=== PATIENT | male | born 1960 | race African-American/Black ===

== ENCOUNTER 2019-11-14 19:19 | Inpatient (IN) | payer BC, OTHER ==
[2019-11-14 20:09] VITALS: BMI 31.8
[2019-11-14] MEDS ORDERED: SODIUM CHLORIDE 500 ML IV STA (21:30)
--- NOTE | 2019-11-14 21:30 | PDOC ---
History of Present Illness <Yahir Kirby - Last Filed: 11/15/19 04:51> - General History Source: Patient - History of Present Illness Initial Comments: -year-old male complaining of right lateral umbilicus pain. Patient reports some nausea and vomiting at home. Patient was seen by his PCP today attempted to reduce umbilical hernia. As per patient patient was referred to the ER, since PCP was unable to reduce umbilical hernia. Patient now alert awake has slight tenderness to the lateral right umbilical area. No palpable mass/ reducible mass noted. denies fever/ chills <Marilu Arshad - Last Filed: 11/15/19 17:06> - General Chief Complaint: Pain Stated Complaint: SENT BY DOCTOR Time Seen by Provider: 11/14/19 20:59 Past History <Yahir Kirby - Last Filed: 11/15/19 04:51> - Past Medical History COPD: No - Psycho Social/Smoking Cessation Hx Smoking History: Never smoked Hx Alcohol Use: No Drug/Substance Use Hx: No <Marilu Arshad - Last Filed: 11/15/19 17:06> - Past Medical History Allergies/Adverse Reactions: Allergies Allergy/AdvReac Type Severity Reaction Status Date / Time No Known Allergies Allergy Verified 11/14/19 22:47 Home Medications: Ambulatory Orders Amoxicillin/Potassium Clav [Augmentin 875-125 Tablet] 1 each PO BID #10 tablet MDD 2 11/15/19 oxyCODONE HCL [Roxicodone -] 5 mg PO Q4H PRN #30 tablet MDD 6 11/15/19 Review of Systems - Review of Systems Able to Perform ROS?: Yes Is the patient limited Sami proficient: No Constitutional: No: Symptoms Reported, See HPI, Chills, Diaphoresis, Fever, Loss of Appetite, Malaise, Night Sweats, Weakness, Weight Stable, Unintentional Wgt. Loss, Unexplained wgt Loss, Other ABD/GI: Yes: Nausea, Abdominal cramping <Marilu Arshad - Last Filed: 11/15/19 17:06> *Physical Exam - Vital Signs Last Vital Signs Temp Pulse Resp BP Pulse Ox 98.6 F 71 20 141/79 97 11/14/19 20:05 11/15/19 02:38 11/15/19 02:38 11/15/19 02:38 11/15/19 02:38 <Yahir Kirby - Last Filed: 11/15/19 04:51> - Vital Signs Last Vital Signs Temp Pulse Resp BP Pulse Ox 98.6 F 77 19 137/71 96 11/14/19 20:05 11/14/19 20:05 11/14/19 20:05 11/14/19 20:05 11/14/19 20:05 - Physical Exam General Appearance: Yes: Appropriately Dressed Respiratory/Chest: positive: Lungs Clear, Normal Breath Sounds Cardiovascular: positive: Regular Rhythm, Regular Rate Gastrointestinal/Abdominal: positive: Normal Bowel Sounds, Tender (right umbilicus no palpable mass. has tenderness on exam), Soft Neurologic: positive: Fully Oriented, Alert, Normal Mood/Affect <Marilu Arshad - Last Filed: 11/15/19 17:06> ED Treatment Course - LABORATORY CBC & Chemistry Diagram: 11/14/19 21:40 11/14/19 21:40 - ADDITIONAL ORDERS Additional order review: Laboratory Results 11/14/19 11/14/19 11/14/19 22:50 21:40 21:40 PT with INR 13.00 INR 1.10 H PTT (Actin FS) 33.0 Sodium Potassium Chloride Carbon Dioxide Anion Gap BUN Creatinine Est GFR (CKD-EPI)AfAm Est GFR (CKD-EPI)NonAf Random Glucose Calcium Total Bilirubin AST ALT Alkaline Phosphatase Total Protein Albumin Lipase Urine Color Yellow Urine Appearance Clear Urine pH 6.0 Ur Specific [place] 1.024 Urine Protein Negative Urine Glucose (UA) Negative Urine Ketones Negative Urine Blood Negative Urine Nitrite Negative Urine Bilirubin Negative Urine Urobilinogen 1.0 Ur Leukocyte Esterase Negative Blood Type A POSITIVE Antibody Screen Negative 11/14/19 11/14/19 21:40 21:40 PT with INR INR PTT (Actin FS) Sodium 139 Potassium 4.3 Chloride 104 Carbon Dioxide 32 Anion Gap 3 L BUN 11.1 Creatinine 1.0 Est GFR (CKD-EPI)AfAm 95.73 Est GFR (CKD-EPI)NonAf 82.60 Random Glucose 94 Calcium 9.3 Total Bilirubin 1.0 AST 17 ALT 24 Alkaline Phosphatase 58 Total Protein 7.7 Albumin 3.6 Lipase 131 Urine Color Urine Appearance Urine pH Ur Specific [place] Urine Protein Urine Glucose (UA) Urine Ketones Urine Blood Urine Nitrite Urine Bilirubin Urine Urobilinogen Ur Leukocyte Esterase Blood Type Antibody Screen 11/14/19 21:40 RBC 4.70 MCV 92.3 MCHC 33.2 RDW 13.9 MPV 8.9 Neutrophils % 59.5 Lymphocytes % 27.5 Monocytes % 9.3 Eosinophils % 3.0 Basophils % 0.7 - Medications Given in the ED: ED Medications Discontinued Medications Generic Name Dose Route Start Last Admin Trade Name Soy PRN Reason Stop Dose Admin Sodium Chloride 500 mls @ 500 mls/hr 11/14/19 21:30 11/14/19 21:52 Normal Saline - IV 11/14/19 22:29 500 mls/hr ASDIR STA Administration <Yahir Kirby - Last Filed: 11/15/19 04:51> - LABORATORY CBC & Chemistry Diagram: 11/14/19 21:40 11/14/19 21:40 <Marilu Arshad - Last Filed: 11/15/19 17:06> ED Progress Note - Progress Note Progress Note: 11/15/19 00:48 A: abdominal pain P: ctap ;labs ua urine culture <Marilu Arshad - Last Filed: 11/15/19 17:06> Medical Decision Making - Medical Decision Making 11/15/19 01:30 CTAP:Abdominal wall: Small fat-containing umbilical hernia without evidence of strangulation. Musculoskeletal: No acute fracture. IMPRESSION: There is thickening and pericholecystic edema with dilated gallbladder; recommend correlation with right upper quadrant ultrasound for acute cholecystitis. US: pending 11/15/19 2.00 patient signed out to Dr. Kirby. pending US results <Marilu Arshad - Last Filed: 11/15/19 17:06> Discharge - Discharge Information Problems reviewed: Yes - Admission Yes <Yahir Kirby - Last Filed: 11/15/19 04:51> - Discharge Information Problems reviewed: Yes <Marilu Arshad - Last Filed: 11/15/19 17:06> - Discharge Information Clinical Impression/Diagnosis: Cholecystitis Abdominal pain Qualifiers: Abdominal location: periumbilical Qualified Code(s): R10.33 - Periumbilical pain Condition: Stable
[2019-11-14 22:00] LABS: BASO % 0.7 % (0-2.0); HEMATOCRIT 43.4 % (35.4-49); HEMOGLOBIN 14.4 GM/dL (11.7-16.9); LYMPH % 27.5 % (8-40); MCH 30.6 pg (25.7-33.7); MCHC 33.2 g/dl (32.0-35.9); MEAN CELL VOLUME 92.3 fl (80-96); MEAN PLT VOLUME 8.9 fl (7.5-11.1); MONO % 9.3 % (3.8-10.2); NEUT % 59.5 % (42.8-82.8); PLATELET COUNT 196 K/MM3 (134-434); RDW 13.9 % (11.9-15.9); WHITE BLOOD COUNT 7.7 K/mm3 (4.0-10.0)
[2019-11-14 22:13] LABS: INR 1.1 (0.83-1.09)
[2019-11-14 22:23] LABS: ALBUMIN 3.6 g/dl (3.4-5.0); BLOOD UREA NITROGEN 11.1 mg/dL (7-18); CALCIUM 9.3 mg/dL (8.5-10.1); POTASSIUM 4.3 mmol/L (3.5-5.1); TOT PROT 7.7 g/dl (6.4-8.2)
[2019-11-14 22:57] LABS: URINE APPEARANCE CLEAR; URINE BILIRUBIN NEGATIVE (NEGATIVE); URINE COLOR YELLOW; URINE GLUCOSE (UA) NEGATIVE (NEGATIVE); URINE KETONE NEGATIVE (NEGATIVE); URINE LEUK ESTERASE NEGATIVE (NEGATIVE); URINE NITRITE NEGATIVE (NEGATIVE); URINE PROTEIN NEGATIVE (NEGATIVE)
--- NOTE | 2019-11-15 04:54 | PDOC ---
*Physical Exam - Vital Signs Last Vital Signs Temp Pulse Resp BP Pulse Ox 98.6 F 71 20 141/79 97 11/14/19 20:05 11/15/19 02:38 11/15/19 02:38 11/15/19 02:38 11/15/19 02:38 ED Treatment Course - LABORATORY CBC & Chemistry Diagram: 11/18/19 06:50 11/14/19 21:40 - ADDITIONAL ORDERS Additional order review: Laboratory Results 11/14/19 11/14/19 11/14/19 22:50 21:40 21:40 PT with INR 13.00 INR 1.10 H PTT (Actin FS) 33.0 Sodium Potassium Chloride Carbon Dioxide Anion Gap BUN Creatinine Est GFR (CKD-EPI)AfAm Est GFR (CKD-EPI)NonAf Random Glucose Calcium Total Bilirubin AST ALT Alkaline Phosphatase Total Protein Albumin Lipase Urine Color Yellow Urine Appearance Clear Urine pH 6.0 Ur Specific [place] 1.024 Urine Protein Negative Urine Glucose (UA) Negative Urine Ketones Negative Urine Blood Negative Urine Nitrite Negative Urine Bilirubin Negative Urine Urobilinogen 1.0 Ur Leukocyte Esterase Negative Blood Type A POSITIVE Antibody Screen Negative 11/14/19 11/14/19 21:40 21:40 PT with INR INR PTT (Actin FS) Sodium 139 Potassium 4.3 Chloride 104 Carbon Dioxide 32 Anion Gap 3 L BUN 11.1 Creatinine 1.0 Est GFR (CKD-EPI)AfAm 95.73 Est GFR (CKD-EPI)NonAf 82.60 Random Glucose 94 Calcium 9.3 Total Bilirubin 1.0 AST 17 ALT 24 Alkaline Phosphatase 58 Total Protein 7.7 Albumin 3.6 Lipase 131 Urine Color Urine Appearance Urine pH Ur Specific [place] Urine Protein Urine Glucose (UA) Urine Ketones Urine Blood Urine Nitrite Urine Bilirubin Urine Urobilinogen Ur Leukocyte Esterase Blood Type Antibody Screen 11/14/19 21:40 RBC 4.70 MCV 92.3 MCHC 33.2 RDW 13.9 MPV 8.9 Neutrophils % 59.5 Lymphocytes % 27.5 Monocytes % 9.3 Eosinophils % 3.0 Basophils % 0.7 - Medications Given in the ED: ED Medications Discontinued Medications Generic Name Dose Route Start Last Admin Trade Name Freq PRN Reason Stop Dose Admin Sodium Chloride 500 mls @ 500 mls/hr 11/14/19 21:30 11/14/19 21:52 Normal Saline - IV 11/14/19 22:29 500 mls/hr ASDIR STA Administration Medical Decision Making - Medical Decision Making 11/15/19 04:53 Case reviewed, agree with assessment and plan US with +stone, GB wall 8mm, +pericholecystic fluid admit, will consult surgery Discharge - Discharge Information Problems reviewed: Yes Clinical Impression/Diagnosis: Cholecystitis Abdominal pain Qualifiers: Abdominal location: periumbilical Qualified Code(s): R10.33 - Periumbilical pain Condition: Stable Disposition: HOME - Follow up/Referral - Patient Discharge Instructions - Post Discharge Activity
--- NOTE | 2019-11-15 05:13 | HP ---
Admitting History and Physical - Primary Care Physician PCP: Dr. Buchanan - Admission Chief Complaint: abd pain History of Present Illness: 59-year-old male complaining of right lateral umbilicus pain. Patient reports some nausea and vomiting at home. Patient was seen by his PCP today attempted to reduce umbilical hernia. As per patient referred to the ER, since PCP was unable to reduce umbilical hernia. Patient still complain of slight tenderness to the lateral right umbilical area, with nausea. No palpable mass/reducible mass noted. denies fever/ chills History Source: Patient Limitations to Obtaining History: No Limitations - Past Surgical History Past Surgical History: Yes: None - Smoking History Smoking history: Never smoked - Alcohol/Substance Use Hx Alcohol Use: No History of Substance Use: reports: None - Social History Usual Living Arrangement: Yes: With Spouse ADL: Independent History of Recent Travel: No Home Medications - Allergies Allergies/Adverse Reactions: Allergies Allergy/AdvReac Type Severity Reaction Status Date / Time No Known Allergies Allergy Verified 11/14/19 22:47 - Home Medications Home Medications: Ambulatory Orders NK [No Known Home Medication] 11/15/19 Family Medical History Family History: Denies Review of Systems - Review of Systems Constitutional: reports: No Symptoms Eyes: reports: No Symptoms HENT: reports: No Symptoms Neck: reports: No Symptoms Cardiovascular: reports: No Symptoms Respiratory: reports: No Symptoms Gastrointestinal: reports: Abdominal Pain, Nausea, Vomiting Genitourinary: reports: No Symptoms Musculoskeletal: reports: No Symptoms Neurological: reports: No Symptoms Endocrine: reports: No Symptoms Hematology/Lymphatic: reports: No Symptoms Psychiatric: reports: No Symptoms Physical Examination Vital Signs: Vital Signs Temperature 98.6 F 11/14/19 20:05 Pulse Rate 71 11/15/19 02:38 Respiratory Rate 20 11/15/19 02:38 Blood Pressure 141/79 11/15/19 02:38 O2 Sat by Pulse Oximetry (%) 97 11/15/19 02:38 Constitutional: Yes: No Distress, Calm Eyes: Yes: Conjunctiva Clear, EOM Intact HENT: Yes: Atraumatic, Normocephalic Neck: Yes: Supple, Trachea Midline Cardiovascular: Yes: Regular Rate and Rhythm Respiratory: Yes: Regular, CTA Bilaterally Gastrointestinal: Yes: Normal Bowel Sounds, Soft, Tenderness (right umbilicus, no mass noted) ...Rectal Exam: Yes: WNL Musculoskeletal: Yes: WNL Extremities: Yes: WNL Edema: No Peripheral Pulses WNL: Yes Integumentary: Yes: WNL Neurological: Yes: Alert, Oriented Labs: CBC, BMP 11/14/19 21:40 11/14/19 21:40 Imaging - Results Cat Scan: Report Reviewed (CT ABD: Small fat-containing umbilical hernia without evidence of strangulation. There is thickening and pericholecystic edema with dilated gallbladder.) Ultrasound: Report Reviewed (ABD: cholelithiasis with gallbladder wall thickening 8 mm with non-mobile gallstone, gallbladder sludge noted.) Problem List - Problems (1) Abdominal pain Code(s): R10.9 - UNSPECIFIED ABDOMINAL PAIN Qualifiers: Abdominal location: periumbilical Qualified Code(s): R10.33 - Periumbilical pain (2) Cholecystitis Code(s): K81.9 - CHOLECYSTITIS, UNSPECIFIED Assessment/Plan 59-year-old male with no significant medical history arrived to ER after seen by PCP today at office for umbilical hernia, which PCP attempted to reduce however unable to so sent to ER for further evaluation. Patient complaining of right lateral umbilicus pain, reports of some nausea and vomiting at home. # Abdominal pain # cholelithiasis vs Cholecystitis CT ABD: Small fat-containing umbilical hernia without evidence of strangulation. There is thickening and pericholecystic edema with dilated gallbladder. ABD: cholelithiasis with gallbladder wall thickening 8 mm with non-mobile gallstone, gallbladder sludge noted. cbc and cmp : unremarkable Lfts, total bili, lipase: wnl UA: negative NPO pain management IVF Zofran PRN for n/v start on zosyn 3.375mg q8h surgery consult FEN: NPO, IVF VTE: Heparin SQ Dispo: Med-surg Visit type - Emergency Visit Emergency Visit: Yes Care time: The patient presented to the Emergency Department on the above date and was hospitalized for further evaluation of their emergent condition. - New Patient This patient is new to me today: Yes Date on this admission: 11/15/19 - Critical Care Critical Care patient: No
[2019-11-15] MEDS ORDERED: ONDANSETRON 4 MG/2 ML VIAL IVPUSH PRN ×3 (05:28→15:57)
[2019-11-15] MEDS ORDERED: SODIUM CHLORIDE 1,000 ML IV SCH ×2 (05:30→15:57)
[2019-11-15] MEDS ORDERED: ACETAMINOPHEN 1000 MG/100 ML VIAL (NON FORMULARY) IVPB PRN ×2 (05:32→15:57)
[2019-11-15] MEDS ORDERED: PIPERACILLIN/TAZOB 3.375 GM 3.375 GM in DEXTROSE 5%-WATER - 50 ML IVPB ONE (06:08)
[2019-11-15] MEDS ORDERED: DEXTROSE 5%-WATER - 50 ML IVPB ONE ×3 (06:40→18:16)
[2019-11-15] MEDS ORDERED: PIPERACILLIN/TAZOBACTAM 3.375 GM VIAL IVPB ONE ×3 (06:40→18:16)
--- NOTE | 2019-11-15 08:09 | CONSULT ---
Addendum entered and electronically signed by Aman Cheung PA 11/15/19 08:37: Patient's umbilical hernia which is reduced right now will most likely recur. If possible, will attempt at closing hernia if able to use for one of our surgical port placements during todays procedure vs. repair elective as out- patient. Original Note: <Aman Cheung - Last Filed: 11/15/19 08:21> - Consultation REQUESTING PROVIDER: Black Timmons - General Surgery CONSULT REQUEST: We have been asked to surgically evaluate this patient for abd pain/acute lesil PCP: Zain Buchanan HPI: Called to eval 59 yo male without any significant PMHx, presents to [facility] ED with c/o abd pain. Began Monday night approximately 2 hours after eating dinner (consisted of rice, beans, fried chicken). Positive post-prandial n/v. States he had a similar episode 07/16/19 and went to [facility] for evaluation. Patient states that they only performed an ABD CT scan which was negative. Per patient, they didn't perform ABD U/S. Was discharged home from the ED. Denies fever, chills, CP, palpitations, SOB, MERRILL, change in urine color. Denies diarrhea, constipation, melena or hematochezia. Denies dysuria, hematuria or flank pain. While in [facility] ED he had the following imaging studies: ABD CT: Small fat-containing umbilical hernia without evidence of strangulation. There is thickening and pericholecystic edema with dilated gallbladder) U/S: cholelithiasis with gallbladder wall thickening 8 mm with non-mobile gallstone, gallbladder sludge noted. PMHx: Denies. PSHx: Denies. Home Meds: Denies taking any. Allergies: NKDA ROS CONSTITUTIONAL: Absent: diaphoresis, generalized weakness, malaise, loss of appetite, weight change CARDIOVASCULAR: Absent: syncope, irregular heart rate, lightheadedness, peripheral edema RESPIRATORY: Absent: wheezing, stridor, hemoptysis GASTROINTESTINAL:Absent: see hpi GENITOURINARY: Absent: frequency, urgency, hesitancy, genital pain MUSCULOSKELETAL: Absent: myalgia, arthralgia, joint swelling, back pain, neck pain SKIN: Absent: rash, itching, pallor HEMATOLOGIC/IMMUNOLOGIC: Absent: easy bleeding, easy bruising, lymphadenopathy NEUROLOGIC: Absent: headache, focal weakness, paresthesias, dizziness, mental status changes, bladder or bowel incontinence PSYCHIATRIC: Absent: anxiety, depression, suicidal or homicidal ideation, hallucinations. PE: GENERAL: Awake, alert, and fully oriented, in no acute distress. HEAD: Normal with no signs of trauma. EYES: PERRL, sclera anicteric, conjunctiva clear. LUNGS: CTA bilat HEART: RRR ABD: Obese habitus. Normoactive bowel sounds throughout. Positive Rios's sign. Mild RUQ/Epigastric TTP. Umbilical hernia reduced prior too my examination. MUSCULOSKELETAL: No CVA tenderness. UE: 2+ pulses, warm, well-perfused. No cyanosis. Cap refill <2 seconds. No peripheral edema. LE: 2+ pulses, warm, well-perfused. No calf tenderness. No peripheral edema. NEURO: Normal speech, gait not observed. PSYCH: Cooperative. Good eye contact. Appropriate mood and affect. SKIN: Warm, dry, normal turgor, no rashes or lesions noted. Last Vital Signs Temp Pulse Resp BP Pulse Ox 98.4 F 70 20 146/81 96 11/15/19 06:00 11/15/19 06:00 11/15/19 06:00 11/15/19 06:00 11/15/19 06:06 Blood Type Blood Type A POSITIVE 11/14/19 21:40 INR, PTT INR 1.10 (0.83-1.09) H 11/14/19 21:40 CBC, BMP 11/14/19 21:40 11/14/19 21:40 Hepatic Panel Total Bilirubin 1.0 mg/dL (0.2-1) 11/14/19 21:40 AST 17 U/L (15-37) 11/14/19 21:40 ALT 24 U/L (13-61) 11/14/19 21:40 Alkaline Phosphatase 58 U/L (45-117) 11/14/19 21:40 Albumin 3.6 g/dl (3.4-5.0) 11/14/19 21:40 Problem List - Problems (1) Acute calculous cholecystitis Assessment/Plan: 59 yo male with acute calclous cholecystits (chronic). No significant PMHx. Not toxic. Expresses desire to have his gallbladder removed on this hospital admission after I discussed with him the radiologic studies (CT scan and ABD U/S ), lab data and physical exam findings. NPO IVF Ofirmev 1gm for pain and or fever > 100.4F Pain management PRN - avoid using morphine Medical optimization / clearance Added to OR schedule for Lap Lesli possible open today Above plan discussed with Dr. Timmons and agrees. Code(s): K80.00 - CALCULUS OF GALLBLADDER W ACUTE CHOLECYST W/O OBSTRUCTION Visit type - Case Type Case Type: ED Admission - Emergency Emergency Visit: Yes ED Registration Date: 11/15/19 Care time: The patient presented to the Emergency Department on the above date and was hospitalized for further evaluation of their emergent condition. - New patient This patient is new to me today: Yes Date on this admission: 11/15/19 <Black Timmons - Last Filed: 11/15/19 14:47> - Consultation REQUESTING PROVIDER: CONSULT REQUEST: We have been asked to surgically evaluate this patient for ( specify). PCP:Zain Buchanan HISTORY OF PRESENT ILLNESS: PMHx: PSHx: Home Medications Medication Instructions Recorded NK [No Known Home Medication] 11/15/19 Allergies Allergy/AdvReac Type Severity Reaction Status Date / Time No Known Allergies Allergy Verified 11/14/19 22:47 REVIEW OF SYSTEMS: CONSTITUTIONAL: Absent: fever, chills, diaphoresis, generalized weakness, malaise, loss of appetite, weight change CARDIOVASCULAR: Absent: chest pain, syncope, palpitations, irregular heart rate, lightheadedness , peripheral edema RESPIRATORY: Absent: cough, shortness of breath, dyspnea with exertion, wheezing, stridor, hemoptysis GASTROINTESTINAL: Absent: abdominal pain, abdominal distension, nausea, vomiting, diarrhea, constipation, melena, hematochezia GENITOURINARY: Absent: dysuria, frequency, urgency, hesitancy, hematuria, flank pain, genital pain MUSCULOSKELETAL: Absent: myalgia, arthralgia, joint swelling, back pain, neck pain SKIN: Absent: rash, itching, pallor HEMATOLOGIC/IMMUNOLOGIC: Absent: easy bleeding, easy bruising, lymphadenopathy NEUROLOGIC: Absent: headache, focal weakness, paresthesias, dizziness, unsteady gait, seizure, mental status changes, bladder or bowel incontinence PSYCHIATRIC: Absent: anxiety, depression, suicidal or homicidal ideation, hallucinations. PHYSICAL EXAM: GENERAL: Awake, alert, and fully oriented, in no acute distress. HEAD: Normal with no signs of trauma. EYES: PERRL, sclera anicteric, conjunctiva clear. NECK: Normal ROM, supple without lymphadenopathy, JVD, or masses. LUNGS: Clear to auscultation bilat anteriorly. No wheezes, and no crackles. No accessory muscle use. HEART: Regular rate and rhythm. No murmurs ABDOMEN: Soft, nontender, not distended, normoactive bowel sounds, no guarding, no rebound, no masses. No organomegaly. MUSCULOSKELETAL: Normal ROM at all joints. No bony deformities or tenderness. No CVA tenderness. UPPER EXTREMITIES: 2+ pulses, warm, well-perfused. No cyanosis. Cap refill <2 seconds. No peripheral edema. LOWER EXTREMITIES: 2+ pulses, warm, well-perfused. No calf tenderness. No peripheral edema. NEUROLOGICAL: Normal speech, gait not observed. PSYCH: Cooperative. Good eye contact. Appropriate mood and affect. SKIN: Warm, dry, normal turgor, no rashes or lesions noted. Vital Signs Temperature 98.5 F 11/15/19 09:28 Pulse Rate 70 11/15/19 09:28 Respiratory Rate 19 11/15/19 10:25 Blood Pressure 117/65 11/15/19 09:28 O2 Sat by Pulse Oximetry (%) 96 11/15/19 10:25 Lab Results WBC 7.7 K/mm3 (4.0-10.0) 11/14/19 21:40 RBC 4.70 M/mm3 (4.00-5.60) 11/14/19 21:40 Hgb 14.4 GM/dL (11.7-16.9) 11/14/19 21:40 Hct 43.4 % (35.4-49) 11/14/19 21:40 MCV 92.3 fl (80-96) 11/14/19 21:40 MCHC 33.2 g/dl (32.0-35.9) 11/14/19 21:40 RDW 13.9 % (11.9-15.9) 11/14/19 21:40 Plt Count 196 K/MM3 (134-434) 11/14/19 21:40 Sodium 139 mmol/L (136-145) 11/14/19 21:40 Potassium 4.3 mmol/L (3.5-5.1) 11/14/19 21:40 Chloride 104 mmol/L (98-107) 11/14/19 21:40 Carbon Dioxide 32 mmol/L (21-32) 11/14/19 21:40 Anion Gap 3 MMOL/L (8-16) L 11/14/19 21:40 BUN 11.1 mg/dL (7-18) 11/14/19 21:40 Creatinine 1.0 mg/dL (0.55-1.3) 11/14/19 21:40 Random Glucose 94 mg/dL (74-106) 11/14/19 21:40 Calcium 9.3 mg/dL (8.5-10.1) 11/14/19 21:40 Blood Type A POSITIVE 11/15/19 07:45 Antibody Screen Negative 11/14/19 21:40 INR 1.10 (0.83-1.09) H 11/14/19 21:40 agree with above plan. will plan for cholecystectomy. if hernia remains symptomatic can repair electively.
--- NOTE | 2019-11-15 08:58 | PN ---
Progress Note (short form) - Note Progress Note: 59 yo man initially came in for tender umbilical hernia-not reducible in the office, imaging showed cholelithiasis/cholecystitis no past medical or surgical history NKDA not taking any medications exercise tolerance is [id number] Laboratory Tests 11/14/19 11/14/19 11/14/19 21:40 21:40 21:40 WBC 7.7 RBC 4.70 Hgb 14.4 Hct 43.4 MCV 92.3 MCH 30.6 MCHC 33.2 RDW 13.9 Plt Count 196 MPV 8.9 Absolute Neuts (auto) 4.6 Neutrophils % 59.5 Lymphocytes % 27.5 Monocytes % 9.3 Eosinophils % 3.0 Basophils % 0.7 Nucleated RBC % 0 PT with INR INR PTT (Actin FS) Sodium 139 Potassium 4.3 Chloride 104 Carbon Dioxide 32 Anion Gap 3 L BUN 11.1 Creatinine 1.0 Est GFR (CKD-EPI)AfAm 95.73 Est GFR (CKD-EPI)NonAf 82.60 Random Glucose 94 Calcium 9.3 Total Bilirubin 1.0 AST 17 ALT 24 Alkaline Phosphatase 58 Total Protein 7.7 Albumin 3.6 Lipase 131 Urine Color Urine Appearance Urine pH Ur Specific [place] Urine Protein Urine Glucose (UA) Urine Ketones Urine Blood Urine Nitrite Urine Bilirubin Urine Urobilinogen Ur Leukocyte Esterase Blood Type Antibody Screen 11/14/19 11/14/19 11/14/19 21:40 21:40 22:50 WBC RBC Hgb Hct MCV MCH MCHC RDW Plt Count MPV Absolute Neuts (auto) Neutrophils % Lymphocytes % Monocytes % Eosinophils % Basophils % Nucleated RBC % PT with INR 13.00 INR 1.10 H PTT (Actin FS) 33.0 Sodium Potassium Chloride Carbon Dioxide Anion Gap BUN Creatinine Est GFR (CKD-EPI)AfAm Est GFR (CKD-EPI)NonAf Random Glucose Calcium Total Bilirubin AST ALT Alkaline Phosphatase Total Protein Albumin Lipase Urine Color Yellow Urine Appearance Clear Urine pH 6.0 Ur Specific [place] 1.024 Urine Protein Negative Urine Glucose (UA) Negative Urine Ketones Negative Urine Blood Negative Urine Nitrite Negative Urine Bilirubin Negative Urine Urobilinogen 1.0 Ur Leukocyte Esterase Negative Blood Type A POSITIVE Antibody Screen Negative Vital Signs Period Temp Pulse Resp BP Sys/Beth Pulse Ox Last 24 Hr 98.4 F-98.6 F 66-77 18-20 113-146/65-81 96-97 S1sr rrr no murmur lungs cta abd ruq tenderness, reducible umbilical hernia with mild tenderness no edema aaox3 no focal deficit No medical contraindication to umbilical hernia repair and cholecystectomy.
[2019-11-15] MEDS ORDERED: HEPARIN NA (PORCINE) 5,000 UNITS/ML 1ML VIAL SQ SCH (10:00)
[2019-11-15] MEDS ORDERED: PIPERACILLIN/TAZOB 3.375 GM 3.375 GM in DEXTROSE 5%-WATER - 50 ML IVPB SCH ×2 (10:00→18:00)
--- NOTE | 2019-11-15 13:22 | EKG ---
Test Reason : Blood Pressure : / mmHG Vent. Rate : 076 BPM Atrial Rate : 076 BPM P-R Int : 180 ms QRS Dur : 102 ms QT Int : 374 ms P-R-T Axes : 065 062 047 degrees QTc Int : 420 ms NORMAL SINUS RHYTHM NORMAL ECG NO PREVIOUS ECGS AVAILABLE Confirmed by DEREK OBRIEN MD ([id number]) on 11/15/2019 1:22:03 PM Referred By: Confirmed By:DEREK OBRIEN MD
[2019-11-15] MEDS ORDERED: fentaNYL CITRATE 250 MCG/5 ML VIAL ONE (13:31)
[2019-11-15] MEDS ORDERED: EPHEDRINE SULFATE/0.9% NACL/PF 50 MG/10 ML SYRINGE NR ONE (13:31)
[2019-11-15] MEDS ORDERED: DEXAMETHASONE SOD PHOSPHATE 4 MG/1 ML VIAL ONE (13:31)
[2019-11-15] MEDS ORDERED: ROCURONIUM BROMIDE 50 MG/5 ML SYRINGE ONE (13:32)
[2019-11-15] MEDS ORDERED: MIDAZOLAM HCL 2 MG/2 ML SINGLE DOSE VIAL ONE ×2 (13:32)
[2019-11-15] MEDS ORDERED: PROPOFOL 20 ML ONE ×2 (13:32)
[2019-11-15] MEDS ORDERED: NEOSTIGMINE METHYLSULFATE 0.5 MG/ML - 10 ML MDV ONE (13:35)
[2019-11-15] MEDS ORDERED: GLYCOPYRROLATE 0.2 MG/1 ML VIAL ONE ×2 (13:35→15:05)
[2019-11-15] MEDS ORDERED: HYDROmorphone HCl 2 MG/ML VIAL IVPUSH PRN ×2 (13:50→13:51)
[2019-11-15] MEDS ORDERED: LACTATED RINGERS SOLUTION 1,000 ML IV SCH (14:00)
--- NOTE | 2019-11-15 14:48 | PN ---
Progress Note (short form) - Note Progress Note: surgery 59m admitted with acute cholecystitis. will plan for surgery. See consult from Aman GAFFNEY. will not address hernia this admission.
--- NOTE | 2019-11-15 14:54 | OP ---
Operative Note - Note: Operative Date: 11/15/19 Pre-Operative Diagnosis: acute cholecytitis Operation: laparoscopic cholecystectomy, lavage Findings: acute on chronic cholecystitis, thickened edematous gb, large stone in neck Post-Operative Diagnosis: Same as Pre-op Surgeon: Black Timmons Distribution Operations Manager: Aman Cheung Anesthesiologist/BOARD CERTIFIED BEHAVIORAL ANALYST: Aldair Morataya Anesthesia: General Specimens Removed: gb Estimated Blood Loss (mls): 30 Operative Report Dictated: Yes
[2019-11-15] MEDS ORDERED: HYDROmorphone HCl 2 MG/ML VIAL IVPB PRN ×3 (15:57→16:09)
--- NOTE | 2019-11-15 16:23 | SURG ---
Surgery Heating Equipment Repairer Note Heating Equipment Repairer: Aman Cheung PA-C Date of Service: 11/15/19 Diagnosis: acute on chronic cholecystitis Procedure: laparoscopic cholecystectomy, lavage I was present for the entirety of the operative procedure. For further detail, please refer to operative report. Visit type - Case Type Case Type: ED Admission - Emergency Emergency Visit: Yes ED Registration Date: 11/15/19 Care time: The patient presented to the Emergency Department on the above date and was hospitalized for further evaluation of their emergent condition.
[2019-11-15] MEDS ORDERED: KETOROLAC TROMETHAMINE 30 MG/1 ML VIAL ONE (16:37)
[2019-11-15] MEDS ORDERED: KETOROLAC TROMETHAMINE 30 MG/1 ML VIAL IVPUSH ONE (16:55)
--- NOTE | 2019-11-15 17:00 | OP ---
DATE OF OPERATION: 11/15/2019 PREOPERATIVE DIAGNOSIS: Acute cholecystitis. POSTOPERATIVE DIAGNOSIS: Acute cholecystitis. PROCEDURE: Laparoscopic cholecystectomy, lavage. SURGEON: Black Timmons DO EQUIPMENT INSTALLATION PROFESSIONAL: YEIMY Winkler ANESTHESIOLOGIST: Aldair Morataya MD INTRAOPERATIVE FINDINGS: Very thickened, inflamed, edematous gallbladder with a large stone impacted in its neck. SPECIMEN: Gallbladder. BLOOD LOSS: Approximately 30 mL. DRAINS: None. COMPLICATIONS: None. DISPOSITION: Recovery in stable condition. BRIEF HISTORY: This is a 59-year-old male who presented to [facility] with signs and symptoms of acute cholecystitis. He presents now for surgery. DESCRIPTION OF PROCEDURE: The patient was placed in supine position. He already received Zosyn antibiotic. The abdomen was prepped and draped in sterile fashion. Next, a transverse incision was made infraumbilical with scalpel through skin and subcutaneous tissue. The fascia was lifted with a Carla clamp. Veress needle was inserted and pneumoperitoneum was created. Of note, the patient had a ventral hernia above this incision which was not addressed at the time of surgery. Next a 10- mm 0-degree laparoscope was placed, followed by insertion of an additional 11-mm trocar subxiphoid and two 5-mm trocars in the right upper quadrant. Attention was turned to the gallbladder. It was pale, distended, edematous, consistent with acute on chronic cholecystitis. The fundus lifted cephalad, the infundibulum retracted laterally. The thickened peritoneal peel was dissected down, exposing a generous cystic duct and a small cystic artery. The cystic duct, cystic artery, and infundibulum were dissected off the liver bed, creating the critical view. The cystic duct was then divided with a MultiFire vascular load stapler in 1 firing. The staple line was inspected, was intact, with no bleeding, no breaks, no sign of ischemia. The cystic artery was clipped and divided. The gallbladder was then liberated from the liver bed using electrocautery. Hemostasis was maintained using electrocautery. The gallbladder was then removed through the infraumbilical trocar site after a significant fascial dilatation and sent to pathology marked as specimen. Trocar was removed under direct visualization. No bleeding was noted. The fascia of the infraumbilical trocar site was closed with multiple interrupted 0 Vicryl sutures. The subcutaneous tissue was irrigated. The skin was closed with Biosyn, Dermabond dressing was placed. Overall, the patient tolerated the procedure well. There were no complications. DO KARLOS MCLAUGHLIN/[id number] MTDD
[2019-11-15] MEDS: PIPERACILLIN/TAZOB 3.375 GM 3.375 GM in DEXTROSE 5%-WATER - 50 ML IVPB SCH (18:25)
[2019-11-15] MEDS: LACTATED RINGERS SOLUTION 1,000 ML IV SCH (18:51)
[2019-11-15] MEDS: HEPARIN NA (PORCINE) 5,000 UNITS/ML 1ML VIAL SQ SCH (22:19)
[2019-11-16] MEDS ORDERED: PIPERACILLIN/TAZOBACTAM 3.375 GM VIAL IVPB ONE (02:09)
[2019-11-16] MEDS ORDERED: DEXTROSE 5%-WATER - 50 ML IVPB ONE (02:09)
[2019-11-16] MEDS: PIPERACILLIN/TAZOB 3.375 GM 3.375 GM in DEXTROSE 5%-WATER - 50 ML IVPB SCH (02:13)
--- NOTE | 2019-11-16 08:47 | PN ---
Progress Note (short form) - Note Progress Note: 59 M s/p GA for lap ian. pt feels well. no comps. good result of anesthetic care.
[2019-11-16] MEDS ORDERED: PT OWN MED DRAWER 7, Y5N ONE (09:25)
[2019-11-16] MEDS: HEPARIN NA (PORCINE) 5,000 UNITS/ML 1ML VIAL SQ SCH ×2 (09:46→21:15)
[2019-11-16] MEDS: PANTOPRAZOLE SODIUM 40 MG VIAL IVPUSH SCH (09:47)
[2019-11-16] MEDS ORDERED: FLU VACCINE QUAD 60 MCG/0.5 ML (MDV 19-20) IM ONE (10:00)
--- NOTE | 2019-11-16 12:48 | PN ---
Progress Note (short form) - Note Progress Note: surgery pt seen and examined. feels well. tolerating liquids. ambulating and voiding abd-soft, moderate distension, incisions clean Plan- surgically stable for d/c. needs 5 days augmentin. no narcotics. f/u in 2 weeks for staple removal.
--- NOTE | 2019-11-16 16:55 | PN ---
Progress Note (short form) - Note Progress Note: Patient is comfortable has no more pain status post abdominal surgery for her gallbladder. No nausea vomiting he ate well. Seen by surgery and gastro. Vital Signs Period Temp Pulse Resp BP Sys/Beth Pulse Ox Last 24 Hr 97.4 F-99.6 F 60-97 11-20 108-140/59-78 95-98 Physical examination HEENT NAD Lung lung is clear Heart S1-S2 normal Abdomen soft tender at the surgical spot bowel sounds are normal extremities negative cyanosis Neurological he is alert awake oriented CBC, BMP 11/14/19 21:40 11/14/19 21:40 Assessment plan Abdominal pain due to acute cholecystitis status post surgery Patient is better advance diet out of bed stop fluids change medicines p.o. continue IV antibiotic followed by p.o. Augmentin for 5 days .
[2019-11-16] MEDS: LACTATED RINGERS SOLUTION 1,000 ML IV SCH (19:01)
[2019-11-16] MEDS: ACETAMINOPHEN 325 MG TABLET (FP) PO PRN (19:40)
[2019-11-17] MEDS: PANTOPRAZOLE SODIUM 40 MG VIAL IVPUSH SCH (10:11)
[2019-11-17] MEDS: HEPARIN NA (PORCINE) 5,000 UNITS/ML 1ML VIAL SQ SCH ×2 (10:11→21:07)
--- NOTE | 2019-11-17 11:49 | PN ---
Progress Note (short form) - Note Progress Note: Patient is comfortable has no more pain status post abdominal surgery for her gallbladder. No nausea vomiting he ate well. Seen by surgery and gastro. Patient has low-grade fever today at this time will watch him no need for antibiotics IV. Vital Signs Vital Signs Period Temp Pulse Resp BP Sys/Beth Pulse Ox Last 24 Hr 98.1 F-100 F 62-99 18-20 123-139/70-79 99 Physical examination HEENT NAD Lung lung is clear Heart S1-S2 normal Abdomen soft tender at the surgical spot bowel sounds are normal extremities negative cyanosis Neurological he is alert awake oriented CBC, BMP 11/14/19 21:40 11/14/19 21:40 Assessment plan Abdominal pain due to acute cholecystitis status post surgery Patient is better advance diet out of bed stop fluids change medicines p.o. continue IV antibiotic followed by p.o. Augmentin for 5 days . Advised patient to get up and walk out of bed discussed the family in detail.
[2019-11-17] MEDS: ACETAMINOPHEN 325 MG TABLET (FP) PO PRN (16:39)
[2019-11-18] MEDS: ACETAMINOPHEN 325 MG TABLET (FP) PO PRN (06:29)
[2019-11-18 08:21] LABS: BASO % 0.5 % (0-2.0); EOS % 0.7 % (0-4.5); HEMATOCRIT 29.7 % (35.4-49); HEMOGLOBIN 9.9 GM/dL (11.7-16.9); LYMPH % 21.1 % (8-40); MCH 30.5 pg (25.7-33.7); MCHC 33.3 g/dl (32.0-35.9); MEAN CELL VOLUME 91.8 fl (80-96); MEAN PLT VOLUME 8.8 fl (7.5-11.1); MONO % 7.7 % (3.8-10.2); PLATELET COUNT 212 K/MM3 (134-434); RBC 3.24 M/mm3 (4.00-5.60); RDW 13.6 % (11.9-15.9); WHITE BLOOD COUNT 6.4 K/mm3 (4.0-10.0)
[2019-11-18] MEDS: HEPARIN NA (PORCINE) 5,000 UNITS/ML 1ML VIAL SQ SCH (10:48)
[2019-11-18] MEDS: PANTOPRAZOLE SODIUM 40 MG VIAL IVPUSH SCH (10:48)
--- NOTE | 2019-11-18 15:51 | DS ---
Physical Examination Vital Signs: Vital Signs Temperature 98.7 F 11/18/19 09:00 Pulse Rate 87 11/18/19 09:00 Respiratory Rate 18 11/18/19 09:00 Blood Pressure 152/68 11/18/19 09:00 O2 Sat by Pulse Oximetry (%) 97 11/17/19 21:00 Constitutional: Yes: Well Nourished, Calm Eyes: Yes: EOM Intact HENT: Yes: Normocephalic Neck: Yes: Trachea Midline Cardiovascular: Yes: Regular Rate and Rhythm Respiratory: Yes: CTA Bilaterally Gastrointestinal: Yes: Normal Bowel Sounds, Soft, Tenderness (mild postop) Renal/: Yes: WNL Musculoskeletal: Yes: WNL Extremities: Yes: WNL Edema: No Labs: CBC, BMP 11/18/19 06:50 11/14/19 21:40 Discharge Summary Problems reviewed: Yes Reason For Visit: CHOLECYSTITIS,ABDOMINAL PAIN Current Active Problems Abdominal pain (Acute) Acute calculous cholecystitis (Acute) Cholecystitis (Acute) Hospital Course: admitted for abd pain, found to have acute cholecystitis underwent uneventful lap.cholecystectomy. on 11.15.19 postop low grade fever, resolved, eating well, moving his bowels, cbc is ok, pain is well controlled ok to me home with outpt follow up Condition: Stable - Instructions Diet, Activity, Other Instructions: Dr. Black Timmons's Post Operative Instructions Physical activity Resume your normal everyday activity as tolerated no heavy lifting or exercise until seen by your surgeon. You may walk unlimited amounts of and climb stairs. You may resume driving the car when you feel safe and comfortable behind the wheel. Wound care Your surgical wound were closed with an absorbable suture and covered with a purple colored glue. Do not peel off. Allow to fall off naturally. You may shower 24 hours after surgery. Diet There are no dietary restrictions. Eat healthy, high-fiber foods. Drink 6 to 8 glasses of liquid each day. This will assist in keeping your bowels are regular. Pain management You may take Tylenol or acetaminophen or Ibuprofen (for example, Motrin, Advil etc.) Any pain prescription medication ordered should be taken as prescribed for moderate to severe pain. Antibiotic Take Augmentin as prescribed for the next five days. Call Dr. Timmons for any of the following: Severe pain not relieved by medication Fever of 101 or higher Excessive bleeding or drainage on dressing Inability to urinate Call the office for a post operative appointment in 7 - 10 days. Referrals: Zain Buchanan MD [Primary Care Provider] - Black Timmons MD [Staff Physician] - - Home Medications Comprehensive Discharge Medication List: Ambulatory Orders Amoxicillin/Potassium Clav [Augmentin 875-125 Tablet] 1 each PO BID #6 tablet Oxycodone HCl/Acetaminophen [Percocet 5-325 mg Tablet] 1 tab PO Q6H #20 tablet MDD 4 11/18/19
[2019-11-18 17:20] VITALS: BP 138/68; PULSE 91; TEMP 99
--- NOTE | 2019-11-19 13:52 | PATH ---
Surgical Pathology Report Patient Name: [address] Med. Rec. #: [id number] /Age/Gender: 1960 (Age: 59) / M Account: [id number] Location: [facility] MED/SURG Taken: 11/15/2019 Received: 11/18/2019 Reported: 11/19/2019 Physicians: Marco A Dior M.D. Specimen(s) Received GALLBLADDER Clinical History Cholecystitis, abdominal pain Final Diagnosis GALLBLADDER, CHOLECYSTECTOMY: SEVERE ACUTE AND CHRONIC CHOLECYSTITIS. CHOLELITHIASIS. Electronically Signed Starla Allen M.D. Gross Description Received in formalin, labeled "gallbladder," is a 9.0 x 3.8 x 3.4 cm. gallbladder with a 0.2 cm. in length portion of cystic duct attached. The outer surface is [place]underwood with a focal defect and varies from smooth to shaggy. The lumen contains green-brown, tenacious bile as well as 2 green-brown, irregular choleliths measuring 1.7 and 1.8 cm in greatest dimension. The mucosa is green-brown with focal erosions. The wall of the gallbladder measures up to 0.7 cm. in thickness. Plumbing Mechanic sections are submitted in one cassette. /11/18/2019 saudi/11/18/2019
== END 2019-11-18 18:05 | disposition home or self-care (01) | DRG 416 ==
LOC: JER 19:19 → JERBED 11-15 04:25 → J8W 11-15 06:37
PROVIDERS: ADMIT Internal Medicine; ATTEND Internal Medicine
PROC: 0FT40ZZ Resection of Gallbladder, Open Approach (ICD-10-PCS; principal; 2019-11-15 12:00)
DX: K80.00 Calculus of gallbladder with acute cholecystitis without obstruction (principal); K42.9 Umbilical hernia without obstruction or gangrene
CPT/HCPCS: 36415; 74177-TC; 76705-TC; 80053; 81003; 83690; 85025; 85610; 85730; 86850; 86900; 86901; 88304-TC; 93005; 93010; 94760; 99284-25; J0131; J1644; J7030; Q2036